=== PATIENT | female | born 1950 | race Caucasian/White ===

== ENCOUNTER 2016-05-09 10:56 | Day surgery (SDC) | payer OTHER ==
[~2016-05-09] VITALS: Ht 160 cm; Wt 155.1 kg
[~2016-05-09 10:56] MED LIST: ADVAIR 250/501 DISK IH; ALBUTEROL SULF8.5 GM IH; AZITHROMYCIN500 M1 PO; DIOVAN320 MG PO; FLONASE ALLERG9.9 ML BOTH NARES; GLUCOPHAGE1000 MG PO; HUMALOG100 UNIT/2 SC; IRON325 M1 PO; JANUVIA100 MG PO; LANTUS 3 M100 UNITS1 SC; LASIX20 MG PO; LASIX40 MG PO; LOVENOX40 MG/0.4 SC; METRO GEL 0.75%45 GM TP; MOTRIN600 MG PO; MOTRIN800 MG PO; NAPROSYN500 MG PO; NORCO 5/3251 TABLET PO; PERCOCET 5/31 TABLET PO; PRAVASTATIN SOD20 MG PO; PREDNISONE20 MG PO; PROTONIX40 MG PO; PROVERA,CYCRIN5 MG PO; SINGULAIR10 MG PO; SPIRIVA1 INHALATI IH; TRADJENTA5 MG PO; TYLENOL EXTRA500 MG PO; TYLENOL REGULA325 MG PO; VICODIN 5-3001 EACH PO
[2016-05-09 12:00] LABS: POINT-OF-CARE METER ID UU14174212
[2016-05-09 12:06] VITALS: BP 189/88
[2016-05-09 12:44] LABS: METH RESISTANT S AUREUS PCR NEGATIVE (NEGATIVE); PROBE CHECK PASS; SPECIMEN PROCESSING CONTROL PASS
[2016-05-09 14:30] LABS: POINT-OF-CARE METER ID UU13113675; POINT-OF-CARE USER ID 515036437
[2016-05-09 15:10] VITALS: BP 143/71
[2016-05-09 16:17] VITALS: BP 166/86
[2016-05-09 17:40] VITALS: BP 136/81
== END 2016-05-09 18:00 | disposition home or self-care (01) ==
LOC: SDC 10:56
PROVIDERS: Obstetrics & Gynecology Gynecologic Oncology
PROC: 0UDB8ZX Extraction of Endometrium, Via Natural or Artificial Opening Endoscopic, Diagnostic (ICD-10-PCS; principal; 2016-05-09)
DX: N85.02 Endometrial intraepithelial neoplasia [EIN] (principal); Z30.430 Encounter for insertion of intrauterine contraceptive device; E66.01 Morbid (severe) obesity due to excess calories; Z68.43 Body mass index [BMI] 50.0-59.9, adult; N95.0 Postmenopausal bleeding; I10 Essential (primary) hypertension; E11.40 Type 2 diabetes mellitus with diabetic neuropathy, unspecified; G47.30 Sleep apnea, unspecified; D86.9 Sarcoidosis, unspecified; J45.909 Unspecified asthma, uncomplicated; Z79.51 Long term (current) use of inhaled steroids
CPT/HCPCS: 82948; 87641; 88305; J0690; J1170; J1815; J1885; J2250; J2405; J3010

== ENCOUNTER 2017-01-04 05:18 | Day surgery (SDC) | payer OTHER ==
[~2017-01-04] VITALS: Ht 162.6 cm; Wt 155.0 kg
[2017-01-04 06:33] VITALS: BP 173/91
[2017-01-04 07:01] LABS: POINT-OF-CARE METER ID UU14174212
[2017-01-04 07:21] LABS: METH RESISTANT S AUREUS PCR NEGATIVE (NEGATIVE); PROBE CHECK PASS; SPECIMEN PROCESSING CONTROL PASS
[2017-01-04 09:00] LABS: POINT-OF-CARE METER ID UU13113675
[2017-01-04 10:04] VITALS: BP 134/66
[2017-01-04 11:07] VITALS: BP 126/67
[2017-01-04 13:28] VITALS: BP 146/67
== END 2017-01-04 13:40 | disposition home or self-care (01) ==
LOC: SDC
PROVIDERS: Obstetrics & Gynecology Gynecologic Oncology
DX: N85.02 Endometrial intraepithelial neoplasia [EIN] (principal); N93.9 Abnormal uterine and vaginal bleeding, unspecified; E66.01 Morbid (severe) obesity due to excess calories; Z68.43 Body mass index [BMI] 50.0-59.9, adult; J44.9 Chronic obstructive pulmonary disease, unspecified; E11.40 Type 2 diabetes mellitus with diabetic neuropathy, unspecified; L93.0 Discoid lupus erythematosus; E78.5 Hyperlipidemia, unspecified; I10 Essential (primary) hypertension; D86.89 Sarcoidosis of other sites; G47.30 Sleep apnea, unspecified; Z79.4 Long term (current) use of insulin; Z80.3 Family history of malignant neoplasm of breast; Z80.0 Family history of malignant neoplasm of digestive organs; Z80.8 Family history of malignant neoplasm of other organs or systems; Z88.2 Allergy status to sulfonamides; Z86.73 Personal history of transient ischemic attack (TIA), and cerebral infarction without residual deficits; Z87.891 Personal history of nicotine dependence
CPT/HCPCS: 82948; 87641; 88305; J0690; J2250; J3010

== ENCOUNTER 2017-04-26 20:37 | Observation (INO) | payer OTHER ==
[~2017-04-26] VITALS: Ht 162.6 cm; Wt 159.8 kg
[~2017-04-26 20:37] MED LIST changes: -ALBUTEROL SULF8.5 GM IH; +VENTOLIN HFA18 GM IH
[2017-04-26 21:08] LABS: HEMATOCRIT 37.8 % (36.0-46.0); HEMOGLOBIN 11.4 G/DL (11.9-15.5); MCH 24.7 PG (29.0-34.0); MCHC 30.2 G/DL (30.0-36.0); PLATELET COUNT 288 K/uL (156-360); RBC DIS.WIDTH-CV 16.4 % (11.8-14.6); RBC DIS.WIDTH-SD 48.5 % (39-53); RED BLOOD COUNT 4.61 M/uL (3.80-5.20); WHITE BLOOD COUNT 9.6 K/uL (4.1-10.2)
[2017-04-26 21:18] LABS: ALBUMIN 3.7 g/dL (3.2-4.8)
[2017-04-26 21:19] LABS: CHLORIDE 98 mEq/L (99-109); POTASSIUM 3.8 mEq/L (3.7-5.4); SODIUM 135 mEq/L (136-147)
[2017-04-26 21:21] LABS: GLUCOSE 191 mg/dL (70-99)
[2017-04-26 21:23] LABS: TOTAL BILIRUBIN 0.7 mg/dL (0.0-1.0)
[2017-04-26 21:24] LABS: ALKALINE PHOSPHATASE 86 IU/L (3-129)
[2017-04-26 21:25] LABS: CREATININE 0.7 mg/dL (0.6-1.3); GFR ESTIMATE (CALCULATED) > 59 mL/min/
[2017-04-26 21:26] LABS: AST (GOT) 11 IU/L (2-34); UREA NITROGEN (BUN) 9 mg/dL (9-23)
[2017-04-26 21:28] LABS: ALT (GPT) 9 IU/L (3-49)
[2017-04-26] MEDS ORDERED: CLEOCIN300 MG PO (23:50)
[2017-04-27 01:05] VITALS: BP 145/71
[2017-04-27 07:51] VITALS: BP 142/88
== END 2017-04-27 15:26 | disposition home or self-care (01) ==
LOC: EME 20:37 → EDOF 23:17 → ENRESERV 23:23 → 5WEST 04-27 00:45
PROVIDERS: Hospitalist
DX: R60.0 Localized edema (principal); I87.2 Venous insufficiency (chronic) (peripheral); E11.9 Type 2 diabetes mellitus without complications; L93.0 Discoid lupus erythematosus; D86.9 Sarcoidosis, unspecified; E66.01 Morbid (severe) obesity due to excess calories; Z68.44 Body mass index [BMI] 60.0-69.9, adult; I10 Essential (primary) hypertension; M79.605 Pain in left leg; M79.661 Pain in right lower leg; G47.33 Obstructive sleep apnea (adult) (pediatric); J44.9 Chronic obstructive pulmonary disease, unspecified; E78.5 Hyperlipidemia, unspecified; Z90.49 Acquired absence of other specified parts of digestive tract; Z87.891 Personal history of nicotine dependence; Z82.49 Family history of ischemic heart disease and other diseases of the circulatory system; Z80.0 Family history of malignant neoplasm of digestive organs; Z80.3 Family history of malignant neoplasm of breast; Z80.41 Family history of malignant neoplasm of ovary; Z88.2 Allergy status to sulfonamides; Z91.018 Allergy to other foods; Z79.4 Long term (current) use of insulin; Z91.19 Patient's noncompliance with other medical treatment and regimen
CPT/HCPCS: 80053; 82948; 85027; 87040; 93970; 99202; G0378; J0690; J1650; J2270; J3370

== ENCOUNTER 2017-08-21 11:41 | Day surgery (SDC) | payer OTHER ==
[~2017-08-21] VITALS: Ht 160 cm; Wt 156.0 kg
[~2017-08-21 11:41] MED LIST changes: +CLEOCIN300 MG PO; +PROVERA,CYCRIN10 MG PO
[2017-08-21 12:26] VITALS: BP 139/81
[2017-08-21 15:50] VITALS: BP 14/68; BP 145/68
[2017-08-21 18:30] VITALS: BP 147/77
[2017-08-21 20:10] VITALS: BP 147/67
== END 2017-08-21 20:35 | disposition home or self-care (01) ==
LOC: SDC 11:41
PROVIDERS: Obstetrics & Gynecology Gynecologic Oncology
PROC: 0UDB8ZX Extraction of Endometrium, Via Natural or Artificial Opening Endoscopic, Diagnostic (ICD-10-PCS; principal; 2017-08-21)
PROC: 0UH98HZ Insertion of Contraceptive Device into Uterus, Via Natural or Artificial Opening Endoscopic (ICD-10-PCS; principal; 2017-08-21)
DX: C54.1 Malignant neoplasm of endometrium (principal); E66.01 Morbid (severe) obesity due to excess calories; Z68.44 Body mass index [BMI] 60.0-69.9, adult; I10 Essential (primary) hypertension; E11.40 Type 2 diabetes mellitus with diabetic neuropathy, unspecified; J44.9 Chronic obstructive pulmonary disease, unspecified; K21.9 Gastro-esophageal reflux disease without esophagitis; E78.5 Hyperlipidemia, unspecified; D86.89 Sarcoidosis of other sites; Z79.4 Long term (current) use of insulin; Z86.73 Personal history of transient ischemic attack (TIA), and cerebral infarction without residual deficits; Z88.2 Allergy status to sulfonamides
CPT/HCPCS: 82948; 88305; J0690; J1885; J2250; J2405